=== PATIENT | male | born 1970 | race African-American/Black ===

== ENCOUNTER 2016-09-10 12:12 | Emergency (ER) | payer MEDICAID ==
[~2016-09-10] VITALS: Ht 195.6 cm; Wt 113.9 kg
[~2016-09-10 12:12] MED LIST: ALPR2TAB7 PO; ARIP15TA2 PO; DEXT5TAB15 PO; FLUO40CA8 PO; LEVE500T9 PO
--- NOTE | 2016-09-10 12:24 | NUR ---
Pt ambulatory to bed 2b, dr mattson at bedside for exam.
[2016-09-10] MEDS ORDERED: ACETAMINOPHEN ES 500 MG TABLET PO ONE (12:30)
[2016-09-10] MEDS ORDERED: IBUPROFEN 600 MG TABLET PO ONE (12:30)
--- NOTE | 2016-09-10 12:34 | NUR ---
Pt dc,ed home w/ aci.
[2016-09-10 12:35] VITALS: BP 128/72
[2016-09-10] MEDS ORDERED: ACETAMINOPHEN ES 500 MG TABLET ONE (12:39)
[2016-09-10] MEDS ORDERED: IBUPROFEN 600 MG TABLET ONE (12:39)
== END 2016-09-10 12:35 | disposition home or self-care (01) ==
LOC: ER 12:12
DX: M54.5 Low back pain (principal); G89.29 Other chronic pain; J45.909 Unspecified asthma, uncomplicated; F10.20 Alcohol dependence, uncomplicated; F17.210 Nicotine dependence, cigarettes, uncomplicated; Z88.8 Allergy status to other drugs, medicaments and biological substances; Z88.0 Allergy status to penicillin; Z59.0 Homelessness
CPT/HCPCS: A4663

== ENCOUNTER 2016-09-12 06:36 | Emergency (ER) | payer MEDICAID ==
[~2016-09-12] VITALS: Ht 195.6 cm; Wt 113.9 kg
[~2016-09-12 06:36] MED LIST changes: -DEXT5TAB15 PO
--- NOTE | 2016-09-12 06:37 | NUR ---
PT WALKED INTO ER C/O BURNING UPON URINATION X2 DAY AND COUGH... PT IS ALERT, ORIENTED X 4, NO RESP DISTRESS NOTED OR REPORTED UPON ASSESSMENT... MD AT BEDSIDE...
[2016-09-12 07:02] LABS: *BILIRUBIN,URIN NEGATIVE (NEGATIVE); *BLOOD, URINE NEGATIVE (NEGATIVE); *CLARITY,URINE CLEAR (CLEAR); *COLOR,URINE YELLOW (YELLOW); *KETONES,URINE NEGATIVE (NEGATIVE); *PROTEIN,URINE NEGATIVE (NEGATIVE); *UROBILINOGEN,URINE 0.2 E.U./dl (NORMAL); LEUKOCYTE ESTERASE ,URINE NEGATIVE (NEGATIVE); NITRITE, URINE NEGATIVE (NEGATIVE); PH,URINE 5.5 (5.0-8.0); UGLUCOSE NEGATIVE (NEGATIVE)
[2016-09-12 07:15] LABS: BACTERIA,URINE NONE SEEN /HPF (NONE SEEN); RBC,URINE NONE SEEN /HPF (0-3); SQUAMOUS EPITHELIAL CELL,UR NONE SEEN /HPF (NONE SEEN); WBC,URINE NONE SEEN /HPF (0-3)
[2016-09-12 07:21] VITALS: BP 136/89
--- NOTE | 2016-09-12 07:21 | NUR ---
Patient discharged to home in stable conditon. Written and verbal after care instructions given. Patient verbalizes understanding of instructions. Pt walked out of ER unassisted with belongings at side..
== END 2016-09-12 07:22 | disposition home or self-care (01) ==
LOC: ER 06:37
DX: R05 Cough (principal); F25.9 Schizoaffective disorder, unspecified; R30.0 Dysuria; J45.909 Unspecified asthma, uncomplicated; F10.20 Alcohol dependence, uncomplicated; F17.210 Nicotine dependence, cigarettes, uncomplicated; F31.9 Bipolar disorder, unspecified; Z88.8 Allergy status to other drugs, medicaments and biological substances; Z59.0 Homelessness; Z88.0 Allergy status to penicillin
CPT/HCPCS: 81001; 99283; A4663

== ENCOUNTER 2016-10-29 06:08 | Emergency (ER) | payer MEDICAID ==
[~2016-10-29] VITALS: Ht 195.6 cm; Wt 117.9 kg
--- NOTE | 2016-10-29 07:03 | NUR ---
dr hoff at the bedside for eval and exam.
[2016-10-29] MEDS ORDERED: VANCOMYCIN IV 1,000 MG in IV DEXTROSE 5% 250 ML IV ONE (07:15)
[2016-10-29] MEDS ORDERED: VANCOMYCIN IV 200 ML ONE (07:41)
[2016-10-29 07:45] LABS: BASOPHILS % (AUTO) 0.8 % (0.0-2.0); EOSINOPHILS # (AUTO) 0.3 K/uL (0.0-0.7); EOSINOPHILS % (AUTO) 4.3 % (0.0-7.0); HEMATOCRIT 44.5 % (40-50); HEMOGLOBIN 15.3 G/DL (14.0-18.0); LYMPHOCYTES # (AUTO) 1.8 K/UL (0.8-4.8); LYMPHOCYTES % (AUTO) 29.6 % (20.5-51.5); MEAN CORPUSCULAR HEMOGLOBIN 32.8 UUG (27.0-31.0); MEAN CORPUSCULAR HGB CONC 35 g/dL (32.0-37.0); MEAN CORPUSCULAR VOLUME 95.1 FL (82.0-92.0); MONOCYTES # (AUTO) 0.5 K/UL (0.1-1.30); MONOCYTES % (AUTO) 8.5 % (0.0-11.0); NEUTROPHILS # (AUTO) 3.5 K/UL (1.8-8.9); NEUTROPHILS % (AUTO) 56.8 % (38.5-71.5); PLATELET COUNT (AUTO) 164 K/UL (150-450); RED BLOOD CELL COUNT(AUTO) 4.68 MIL/UL (4.7-6.1); RED CELL DISTRIBUTION WIDTH 12.7 % (11.5-14.5); WHITE BLOOD COUNT (AUTO) 6.1 K/UL (4.0-11.2)
[2016-10-29 07:52] LABS: CARBON DIOXIDE 31 mmol/L (21-32); CHLORIDE 102 mmol/L (98-107); CREATININE 1.2 mg/dL (0.6-1.3); GFR 80 mL/min (>60); GLUCOSE 74 mg/dL (74-106); POTASSIUM 3.5 mmol/L (3.5-5.1); SODIUM SERUM 141 mmol/L (136-145); UREA NITROGEN, BLOOD 13 mg/dL (7-18)
[2016-10-29 08:04] LABS: ALANINE AMINOTRANSFERASE 32 U/L (16-63); ALBUMIN 3.8 g/dL (3.4-5.0); ALKALINE PHOSPHATASE 60 U/L (50-136); ASPARTATE AMINOTRANSFERASE 32 U/L (15-37); BILIRUBIN,DIRECT < 0.1 mg/dL (0.0-0.2); BILIRUBIN,TOTAL 0.3 mg/dL (0.2-1.0); NT-PRO BNP 15 pg/mL (0-125); TOTAL PROTEIN, SERUM 8.1 g/dL (6.4-8.2)
--- NOTE | 2016-10-29 08:26 | NUR ---
belonging list completed, pt not candidate for mrsa.
--- NOTE | 2016-10-29 08:53 | NUR ---
AZ WEINER SPOKE TO AT [facility].
--- NOTE | 2016-10-29 09:10 | NUR ---
SBAR REPORT GIVEN TO TALIA AT [facility]. [facility] CALLED FOR TRANSPORT.
--- NOTE | 2016-10-29 09:15 | NUR ---
PT AND SIGNED TRANSFER PAPERS.
--- NOTE | 2016-10-29 10:26 | NUR ---
REPORT GIVEN TO EMT'S. ALL BELONGING SENT W/ PT. PT LEFT ER IN STABLE CONDITION.
== END 2016-10-29 10:31 | disposition short-term general hospital (02) ==
LOC: ER 06:11
DX: L03.116 Cellulitis of left lower limb (principal); L03.115 Cellulitis of right lower limb; J45.909 Unspecified asthma, uncomplicated; F25.9 Schizoaffective disorder, unspecified; F31.9 Bipolar disorder, unspecified; F10.20 Alcohol dependence, uncomplicated; F17.210 Nicotine dependence, cigarettes, uncomplicated; Z88.0 Allergy status to penicillin; Z88.8 Allergy status to other drugs, medicaments and biological substances
CPT/HCPCS: 36415; 85025; A4663; J3370

== ENCOUNTER 2016-11-03 07:04 | Emergency (ER) | payer MEDICAID ==
[~2016-11-03] VITALS: Ht 195.6 cm; Wt 122.5 kg
--- NOTE | 2016-11-03 10:21 | NUR ---
Patient discharged to home in stable conditon. Written and verbal after care instructions given. Patient verbalizes understanding of instructions.PT WALKS IN STEADY GAIT. [facility] PROVIDED PER PT REQUEST.
[2016-11-03 10:22] VITALS: BP 119/81
== END 2016-11-03 10:30 | disposition home or self-care (01) ==
LOC: ER 07:14
DX: L03.115 Cellulitis of right lower limb (principal); F20.9 Schizophrenia, unspecified; J45.909 Unspecified asthma, uncomplicated; F31.9 Bipolar disorder, unspecified; F10.20 Alcohol dependence, uncomplicated; F17.210 Nicotine dependence, cigarettes, uncomplicated; Z88.0 Allergy status to penicillin; Z88.8 Allergy status to other drugs, medicaments and biological substances; Z59.0 Homelessness
CPT/HCPCS: 93971; 99284; A4663

== ENCOUNTER 2016-11-17 06:44 | Emergency (ER) | payer MEDICAID ==
[~2016-11-17] VITALS: Ht 195.6 cm; Wt 122.5 kg
--- NOTE | 2016-11-17 07:18 | NUR ---
mse completed, pt d/c'd aci/rx x1 given. pt ambulaterd w/o diff/took all belongs
[2016-11-17 07:24] VITALS: BP 129/86
== END 2016-11-17 07:24 | disposition home or self-care (01) ==
LOC: ER 06:47
DX: Z76.0 Encounter for issue of repeat prescription (principal); J45.909 Unspecified asthma, uncomplicated; F10.20 Alcohol dependence, uncomplicated; F17.210 Nicotine dependence, cigarettes, uncomplicated; F31.9 Bipolar disorder, unspecified; Z88.0 Allergy status to penicillin; Z59.0 Homelessness; Z88.8 Allergy status to other drugs, medicaments and biological substances
CPT/HCPCS: 99283; A4663

== ENCOUNTER 2016-11-24 06:56 | Emergency (ER) | payer MEDICAID ==
[~2016-11-24] VITALS: Ht 193 cm; Wt 123.4 kg
--- NOTE | 2016-11-24 07:13 | NUR ---
dr mattson at the bedside for eval and exam.
[2016-11-24] MEDS ORDERED: HYDROCODONE/APAP 5-325MG TABLET PO ONE (07:30)
[2016-11-24] MEDS ORDERED: HYDROCODONE/APAP 5-325MG TABLET ONE (07:38)
--- NOTE | 2016-11-24 07:44 | NUR ---
Patient discharged to home in stable conditon. Written and verbal after care instructions given. Patient verbalizes understanding of instructions.
[2016-11-24 07:45] VITALS: BP 127/75
== END 2016-11-24 07:45 | disposition home or self-care (01) ==
LOC: ER 06:57
DX: S39.012A Strain of muscle, fascia and tendon of lower back, initial encounter (principal); F10.20 Alcohol dependence, uncomplicated; F17.210 Nicotine dependence, cigarettes, uncomplicated; F25.9 Schizoaffective disorder, unspecified; F31.9 Bipolar disorder, unspecified; J45.909 Unspecified asthma, uncomplicated; Z88.0 Allergy status to penicillin; Z59.0 Homelessness; Z88.8 Allergy status to other drugs, medicaments and biological substances; X58.XXXA Exposure to other specified factors, initial encounter; Y93.89 Activity, other specified; Y99.8 Other external cause status; Y92.89 Other specified places as the place of occurrence of the external cause
CPT/HCPCS: 72100; A4663

== ENCOUNTER 2016-12-18 07:25 | Emergency (ER) | payer MEDICAID ==
[~2016-12-18] VITALS: Ht 193 cm; Wt 123.3 kg
[~2016-12-18 07:25] MED LIST changes: -ARIP15TA2 PO; +ARIP15TA3 PO
[2016-12-18] MEDS: CLINDAMYCIN HCL 150 MG CAPSULE PO ONE (08:00)
[2016-12-18] MEDS: HYDROCODONE/APAP 7.5-325MG TABLET PO PRN (08:00)
--- NOTE | 2016-12-18 08:01 | NUR ---
Patient discharged to home in stable conditon. Written and verbal after care instructions given. Patient verbalizes understanding of instructions.
[2016-12-18] MEDS ORDERED: CLINDAMYCIN HCL 300 MG CAPSULE ONE (08:11)
[2016-12-18] MEDS ORDERED: HYDROCODONE/APAP 7.5-325MG TABLET ONE (08:11)
== END 2016-12-18 08:06 | disposition home or self-care (01) ==
LOC: ER 07:26
DX: K02.9 Dental caries, unspecified (principal); S02.5XXG Fracture of tooth (traumatic), subsequent encounter for fracture with delayed healing; J45.909 Unspecified asthma, uncomplicated; F31.9 Bipolar disorder, unspecified; F20.9 Schizophrenia, unspecified; F10.20 Alcohol dependence, uncomplicated; F17.210 Nicotine dependence, cigarettes, uncomplicated; Z88.0 Allergy status to penicillin; Z88.8 Allergy status to other drugs, medicaments and biological substances; Z59.0 Homelessness; X58.XXXD Exposure to other specified factors, subsequent encounter
CPT/HCPCS: A4663

== ENCOUNTER 2017-01-11 22:55 | Emergency (ER) | payer MEDICAID ==
[~2017-01-11] VITALS: Ht 193 cm; Wt 123.4 kg
[2017-01-11] MEDS ORDERED: ARIPIPRAZOLE 5 MG TABLET PO ONE (23:15)
--- NOTE | 2017-01-11 23:30 | NUR ---
Call placed to [facility] for PET evaluation, ETA 60 min.
[2017-01-11] MEDS ORDERED: ARIPIPRAZOLE 5 MG TABLET ONE (23:38)
[2017-01-11 23:51] LABS: EOSINOPHILS # (AUTO) 0.3 K/uL (0.0-0.7); EOSINOPHILS % (AUTO) 6.4 % (0.0-7.0); HEMATOCRIT 42.5 % (40-50); HEMOGLOBIN 14.1 G/DL (14.0-18.0); LYMPHOCYTES # (AUTO) 1.6 K/UL (0.8-4.8); LYMPHOCYTES % (AUTO) 33.9 % (20.5-51.5); MEAN CORPUSCULAR HEMOGLOBIN 31.9 UUG (27.0-31.0); MEAN CORPUSCULAR HGB CONC 33 g/dL (32.0-37.0); MONOCYTES # (AUTO) 0.5 K/UL (0.1-1.30); MONOCYTES % (AUTO) 9.3 % (0.0-11.0); NEUTROPHILS # (AUTO) 2.5 K/UL (1.8-8.9); NEUTROPHILS % (AUTO) 49.4 % (38.5-71.5); PLATELET COUNT (AUTO) 134 K/UL (150-450); RED BLOOD CELL COUNT(AUTO) 4.43 MIL/UL (4.7-6.1); WHITE BLOOD COUNT (AUTO) 4.9 K/UL (4.0-11.2)
[2017-01-12 00:02] LABS: CARBON DIOXIDE 24 mmol/L (21-32); CHLORIDE 104 mmol/L (98-107); CREATININE 1.2 mg/dL (0.6-1.3); GLUCOSE 105 mg/dL (74-106); POTASSIUM 3.5 mmol/L (3.5-5.1); UREA NITROGEN, BLOOD 12 mg/dL (7-18)
[2017-01-12 00:03] LABS: ETHANOL 26 MG/DL (0-0)
[2017-01-12 00:08] LABS: ALANINE AMINOTRANSFERASE 23 U/L (16-63); ALKALINE PHOSPHATASE 68 U/L (50-136); ASPARTATE AMINOTRANSFERASE 21 U/L (15-37); BILIRUBIN,TOTAL 0.2 mg/dL (0.2-1.0); TOTAL PROTEIN, SERUM 7.3 g/dL (6.4-8.2)
[2017-01-12 00:10] LABS: BILIRUBIN,DIRECT 0.1 mg/dL (0.0-0.2)
[2017-01-12 00:30] LABS: ACETAMINOPHEN < 2.0 ug/mL (10-30)
[2017-01-12 00:57] LABS: *AMPHETAMINE, URINE NEGATIVE (NEGATIVE); *BARBITURATE, URINE NEGATIVE (NEGATIVE); *CANNABINOID, URINE NEGATIVE (NEGATIVE); *COCCAINE, URINE NEGATIVE (NEGATIVE); *OPIATE, URINE NEGATIVE (NEGATIVE); *PHENCYCLIDINE SCREEN,URINE NEGATIVE (NEGATIVE)
--- NOTE | 2017-01-12 01:08 | NUR ---
Patient given written and verbal discharge instructions. Patient verbalizes understanding of instructions. Patient is ambulatory with steady gait. Refuses offer of halfway placement. Patient given list of available shelters in surrounding area.
== END 2017-01-12 01:09 | disposition home or self-care (01) ==
LOC: ER 22:56
DX: F25.9 Schizoaffective disorder, unspecified (principal); F29 Unspecified psychosis not due to a substance or known physiological condition; J45.909 Unspecified asthma, uncomplicated; F31.9 Bipolar disorder, unspecified; F10.20 Alcohol dependence, uncomplicated; F17.210 Nicotine dependence, cigarettes, uncomplicated; Z76.5 Malingerer [conscious simulation]; Z88.0 Allergy status to penicillin; Z88.8 Allergy status to other drugs, medicaments and biological substances; Z59.0 Homelessness
CPT/HCPCS: 36415; 80048; 80076; 80307; 85025; 99284; 99406; A4663; G0480 ×2; G0481

== ENCOUNTER 2017-01-21 11:11 | Emergency (ER) | payer MEDICAID ==
[~2017-01-21] VITALS: Ht 195.6 cm; Wt 122.4 kg
--- NOTE | 2017-01-21 11:16 | NUR ---
DR PEREZ AT THE BEDSIDE FOR EVAL AND EXAM.
[2017-01-21] MEDS: KETOROLAC TROMETHAMINE 30 MG INJ IM ONE (11:30)
[2017-01-21] MEDS ORDERED: KETOROLAC TROMETHAMINE 30 MG INJ ONE (11:32)
[2017-01-21 11:35] VITALS: BP 144/85
--- NOTE | 2017-01-21 11:35 | NUR ---
Patient discharged to home in stable conditon. Written and verbal after care instructions given. Patient verbalizes understanding of instructions.
== END 2017-01-21 11:36 | disposition home or self-care (01) ==
LOC: ER 11:11
DX: M54.5 Low back pain (principal); Z59.0 Homelessness; F17.200 Nicotine dependence, unspecified, uncomplicated; J45.909 Unspecified asthma, uncomplicated; Z88.0 Allergy status to penicillin
CPT/HCPCS: A4663; J1885

== ENCOUNTER 2017-01-29 06:36 | Emergency (ER) | payer MEDICAID ==
[~2017-01-29] VITALS: Ht 195.6 cm; Wt 123.4 kg
[2017-01-29] MEDS ORDERED: CLIN300C11 PO (06:47)
--- NOTE | 2017-01-29 06:51 | NUR ---
PATIENT C/O TOOTH ABSCESS FOR SEVERAL DAYS. WAS SEEN ON ANOTHER HOSPITAL FOR SIMILAR PROBLEM AND WAS PRESCRIBE CINDAMYCIN 300MG BID. HERE FOR WORSENING PAIN. PATIENT DENIES ANY SHORTNESS OF BREATH AT THIS TIME.
--- NOTE | 2017-01-29 07:07 | NUR ---
DR GERMAN AT THE BEDSIDE FOR EVAL AND EXAM.
[2017-01-29 07:26] VITALS: BP 113/73
--- NOTE | 2017-01-29 07:26 | NUR ---
Patient discharged to home in stable conditon. Written and verbal after care instructions given. Patient verbalizes understanding of instructions.
== END 2017-01-29 07:27 | disposition home or self-care (01) ==
LOC: ER 06:37
DX: K04.7 Periapical abscess without sinus (principal); Z59.0 Homelessness; F17.200 Nicotine dependence, unspecified, uncomplicated; J45.909 Unspecified asthma, uncomplicated; Z88.0 Allergy status to penicillin
CPT/HCPCS: A4663

== ENCOUNTER 2017-04-15 05:33 | Emergency (ER) | payer MEDICAID ==
[~2017-04-15] VITALS: Ht 195.6 cm; Wt 129.3 kg
[~2017-04-15 05:33] MED LIST changes: +CLIN300C11 PO
[2017-04-15] MEDS ORDERED: ACETAMINOPHEN 650 MG/20.3 ML LIQUID UDC PO ONE (06:53)
[2017-04-15] MEDS ORDERED: ONDANSETRON ODT 4 MG TAB.RAPDIS SL ONE (07:00)
[2017-04-15] MEDS ORDERED: ACETAMINOPHEN ES 500 MG TABLET ONE (07:11)
[2017-04-15] MEDS ORDERED: ONDANSETRON ODT 4 MG TAB.RAPDIS ONE (07:11)
[2017-04-15] MEDS ORDERED: IBUPROFEN 800 MG TABLET PO ONE (08:05)
[2017-04-15] MEDS ORDERED: IBUPROFEN 800 MG TABLET ONE (08:23)
--- NOTE | 2017-04-15 08:56 | NUR ---
pt was evaluated by dr graham. pt was d/c to home. d/c instructions given to the pt.
[2017-04-15 08:57] VITALS: BP 139/91
== END 2017-04-15 08:59 | disposition home or self-care (01) ==
LOC: ER 05:40
DX: R51 Headache (principal); R42 Dizziness and giddiness; R07.9 Chest pain, unspecified; R19.7 Diarrhea, unspecified; Z88.0 Allergy status to penicillin; Z59.0 Homelessness; J45.909 Unspecified asthma, uncomplicated
CPT/HCPCS: 70450; 99284; A4663; Q0162

== ENCOUNTER 2017-05-05 08:41 | Emergency (ER) | payer MEDICAID ==
[~2017-05-05] VITALS: Ht 195.6 cm; Wt 129.3 kg
[2017-05-05] MEDS ORDERED: IV NORMAL SALINE 1000 ML BAG IV ONE (09:00)
--- NOTE | 2017-05-05 09:10 | NUR ---
DR GERMAN AT THE BEDSIDE FOR EVAL AND EXAM.
[2017-05-05 09:29] LABS: BASOPHILS % (AUTO) 0.7 % (0.0-2.0); EOSINOPHILS # (AUTO) 0.3 K/uL (0.0-0.7); EOSINOPHILS % (AUTO) 4.7 % (0.0-7.0); HEMATOCRIT 48.1 % (40-50); HEMOGLOBIN 16.5 G/DL (14.0-18.0); LYMPHOCYTES # (AUTO) 1.9 K/UL (0.8-4.8); LYMPHOCYTES % (AUTO) 31.5 % (20.5-51.5); MEAN CORPUSCULAR HEMOGLOBIN 32.7 UUG (27.0-31.0); MEAN CORPUSCULAR HGB CONC 34 g/dL (32.0-37.0); MEAN CORPUSCULAR VOLUME 95.2 FL (82.0-92.0); MONOCYTES # (AUTO) 0.7 K/UL (0.1-1.30); MONOCYTES % (AUTO) 11.1 % (0.0-11.0); NEUTROPHILS # (AUTO) 3.1 K/UL (1.8-8.9); PLATELET COUNT (AUTO) 128 K/UL (150-450); RED BLOOD CELL COUNT(AUTO) 5.05 MIL/UL (4.7-6.1)
[2017-05-05 09:37] LABS: CREATININE 1.2 mg/dL (0.6-1.3); POTASSIUM 4.2 mmol/L (3.5-5.1)
[2017-05-05 09:43] LABS: BILIRUBIN,DIRECT 0.1 mg/dL (0.0-0.2); BILIRUBIN,TOTAL 0.3 mg/dL (0.2-1.0); TOTAL PROTEIN, SERUM 8.1 g/dL (6.4-8.2)
--- NOTE | 2017-05-05 10:11 | NUR ---
[facility] CALLED FOR PSYCH EVAL PER MD REQUEST.
--- NOTE | 2017-05-05 10:30 | NUR ---
[facility] PET elavuater called ETA 30 min. pt is resting in bed, watching TV. no acute distress.
--- NOTE | 2017-05-05 11:11 | NUR ---
RENETTA RODRIGUES FROM PET AT THE BEDSIDE FOR PSYCH EVAL.
--- NOTE | 2017-05-05 11:42 | NUR ---
IV removed. Catheter intact and site benign. Pressure and 4x4 gauze applied to site. No bleeding noted.
--- NOTE | 2017-05-05 11:44 | NUR ---
Patient discharged to home in stable conditon. Written and verbal after care instructions given. Patient verbalizes understanding of instructions.
[2017-05-05 11:45] VITALS: BP 123/68
== END 2017-05-05 11:46 | disposition home or self-care (01) ==
LOC: ER 08:41
DX: R42 Dizziness and giddiness (principal); J45.909 Unspecified asthma, uncomplicated; Z59.0 Homelessness; F17.200 Nicotine dependence, unspecified, uncomplicated; Z88.0 Allergy status to penicillin; Z88.8 Allergy status to other drugs, medicaments and biological substances
CPT/HCPCS: 36415; 71010; 80048; 80076; 84484; 85025; 93005; 96360; 99285; A4663; J7030; 70030-TC

== ENCOUNTER 2017-06-23 08:01 | Emergency (ER) | payer MEDICAID ==
[~2017-06-23] VITALS: Ht 188 cm; Wt 104.3 kg
[2017-06-23] MEDS ORDERED: KETOROLAC TROMETHAMINE 30 MG INJ IM ONE (08:30)
[2017-06-23] MEDS ORDERED: IBUPROFEN 800 MG TABLET PO ONE (08:30)
[2017-06-23 08:40] VITALS: BP 119/86
--- NOTE | 2017-06-23 08:41 | NUR ---
Patient discharged to home in stable conditon. Written and verbal after care instructions given. Patient verbalizes understanding of instructions. Pt walked out of ER w/ steady gait.
[2017-06-23] MEDS ORDERED: IBUPROFEN 800 MG TABLET ONE (08:51)
== END 2017-06-23 08:41 | disposition home or self-care (01) ==
LOC: ER 08:01
DX: M54.16 Radiculopathy, lumbar region (principal); J45.909 Unspecified asthma, uncomplicated; Z59.0 Homelessness; Z88.0 Allergy status to penicillin; F17.200 Nicotine dependence, unspecified, uncomplicated
CPT/HCPCS: A4663

== ENCOUNTER 2017-06-27 09:40 | Emergency (ER) | payer MEDICAID ==
[~2017-06-27] VITALS: Ht 195.6 cm; Wt 129.3 kg
[2017-06-27] MEDS ORDERED: ALBU8HFA4 IH (09:49)
[2017-06-27] MEDS ORDERED: IBUP800T54 PO (09:49)
--- NOTE | 2017-06-27 10:01 | NUR ---
Patient is aox4 & refusing any blood or urine tests. MD notified. Patient denies homicidal or suicidal thoughts
--- NOTE | 2017-06-27 10:15 | NUR ---
Patient discharged to home in stable conditon. Written and verbal after care instructions given to patient by MD himself. Patient verbalizes understanding of instructions.
== END 2017-06-27 10:15 | disposition home or self-care (01) ==
LOC: ER 09:40
DX: F20.9 Schizophrenia, unspecified (principal); Z59.0 Homelessness; F31.9 Bipolar disorder, unspecified; F17.200 Nicotine dependence, unspecified, uncomplicated; G40.909 Epilepsy, unspecified, not intractable, without status epilepticus; J45.909 Unspecified asthma, uncomplicated; D86.9 Sarcoidosis, unspecified; Z88.0 Allergy status to penicillin
CPT/HCPCS: A4663

== ENCOUNTER 2017-07-08 08:45 | Emergency (ER) | payer MEDICAID ==
[~2017-07-08] VITALS: Ht 190.5 cm; Wt 113.4 kg
[~2017-07-08 08:45] MED LIST changes: +ALBU8HFA4 IH; -CLIN300C11 PO; +IBUP800T54 PO
--- NOTE | 2017-07-08 09:02 | NUR ---
PT IN BED WATCHING TV. PT STATES NOT HAVING SLEPT IN 7 DAYS AND "STARTING TO FEEL FATIGUE." PT STATES BEING HERE FOR MED REFILL AND DENIES BEING IN PAIN OR ANY TYPE OF PHYSICAL DISTRESS. CURRENTLY WAITING FOR MD CONSULT. WILL CONTINUE TO MONITOR.
== END 2017-07-08 09:22 | disposition home or self-care (01) ==
LOC: ER 08:45
DX: F20.9 Schizophrenia, unspecified (principal); Z59.0 Homelessness; F17.200 Nicotine dependence, unspecified, uncomplicated; J45.909 Unspecified asthma, uncomplicated; Z88.0 Allergy status to penicillin; Z88.8 Allergy status to other drugs, medicaments and biological substances; F31.9 Bipolar disorder, unspecified
CPT/HCPCS: A4663

== ENCOUNTER 2017-08-01 07:59 | Emergency (ER) | payer MEDICAID ==
[~2017-08-01] VITALS: Ht 195.6 cm; Wt 129.3 kg
--- NOTE | 2017-08-01 08:25 | NUR ---
Patient discharged to home in stable conditon. Written and verbal after care instructions given. Patient verbalizes understanding of instructions.pt walks in steady gait, no sign of distress.
== END 2017-08-01 08:28 | disposition home or self-care (01) ==
LOC: ER 08:01
DX: Z76.0 Encounter for issue of repeat prescription (principal); Z59.0 Homelessness; J45.909 Unspecified asthma, uncomplicated; Z88.0 Allergy status to penicillin; F17.200 Nicotine dependence, unspecified, uncomplicated
CPT/HCPCS: 99283; A4663

== ENCOUNTER 2017-08-16 10:47 | Emergency (ER) | payer MEDICAID ==
[~2017-08-16] VITALS: Ht 193 cm; Wt 113.4 kg
[~2017-08-16 10:47] MED LIST changes: -IBUP800T54 PO
--- NOTE | 2017-08-16 12:50 | NUR ---
PATIENT WAS MSE BY DR GERMAN
--- NOTE | 2017-08-16 13:13 | NUR ---
DR hoff spoke with patient. Patient discharged to home in stable conditon. Verbal after care instructions given. Patient verbalizes understanding of instructions. Patient NO CP. Dose not verbalize any SI. A & O x4.
== END 2017-08-16 13:17 | disposition home or self-care (01) ==
LOC: ER 10:47
DX: F29 Unspecified psychosis not due to a substance or known physiological condition (principal); J45.909 Unspecified asthma, uncomplicated; F20.9 Schizophrenia, unspecified; F17.210 Nicotine dependence, cigarettes, uncomplicated; Z59.0 Homelessness; Z88.0 Allergy status to penicillin; Z88.8 Allergy status to other drugs, medicaments and biological substances; Z79.899 Other long term (current) drug therapy
CPT/HCPCS: 99284; A4663

== ENCOUNTER 2017-08-28 15:47 | Emergency (ER) | payer MEDICAID ==
[~2017-08-28] VITALS: Ht 195.6 cm; Wt 129.3 kg
== END 2017-08-28 16:36 | disposition home or self-care (01) ==
LOC: ER 15:50
DX: J45.909 Unspecified asthma, uncomplicated (principal); F17.210 Nicotine dependence, cigarettes, uncomplicated; Z76.0 Encounter for issue of repeat prescription; Z59.0 Homelessness; Z88.0 Allergy status to penicillin; Z88.8 Allergy status to other drugs, medicaments and biological substances; Z79.899 Other long term (current) drug therapy
CPT/HCPCS: A4663

== ENCOUNTER 2017-09-09 07:47 | Emergency (ER) | payer MEDICAID ==
[~2017-09-09] VITALS: Ht 195.6 cm; Wt 129.3 kg
--- NOTE | 2017-09-09 08:02 | NUR ---
PATIENT WAS SEEN BY DR ROSE FOR C/O "PRIAPISM" DC AND FOLLOW UP INSTRUCTIONS GIVEN TO PATIENT BY .
== END 2017-09-09 08:04 | disposition home or self-care (01) ==
LOC: ER 07:47
DX: N48.30 Priapism, unspecified (principal); J45.909 Unspecified asthma, uncomplicated; F17.210 Nicotine dependence, cigarettes, uncomplicated; Z88.0 Allergy status to penicillin; Z88.8 Allergy status to other drugs, medicaments and biological substances; Z79.899 Other long term (current) drug therapy
CPT/HCPCS: A4663

== ENCOUNTER 2017-09-18 10:46 | Emergency (ER) | payer MEDICAID ==
[~2017-09-18] VITALS: Ht 195.6 cm; Wt 83.9 kg
--- NOTE | 2017-09-18 11:08 | NUR ---
Patient discharged to home in stable conditon. Written and verbal after care instructions given. Patient verbalizes understanding of instructions.pt walks in steady gait, no sign of distress
== END 2017-09-18 11:09 | disposition home or self-care (01) ==
LOC: ER 10:46
DX: Z76.0 Encounter for issue of repeat prescription (principal); J45.909 Unspecified asthma, uncomplicated; F17.210 Nicotine dependence, cigarettes, uncomplicated; Z88.0 Allergy status to penicillin; Z88.8 Allergy status to other drugs, medicaments and biological substances; Z79.899 Other long term (current) drug therapy
CPT/HCPCS: A4663

== ENCOUNTER 2017-09-25 05:32 | Emergency (ER) | payer MEDICAID ==
[~2017-09-25] VITALS: Ht 195.6 cm; Wt 129.3 kg
--- NOTE | 2017-09-25 05:54 | NUR ---
DR MONSERRAT BERNARDO MD AT BEDSIDE FOR MSE.
--- NOTE | 2017-09-25 06:02 | NUR ---
PT STATES HE IS HEARING VOICES, TELLING HIM TO HURT OTHERS. PT PRESENTS CALM AND COOPERATIVE AT THIS POINT IN TIME. HE ALSO STATES HE HAS BILATERAL PAIN IN BOTH THIGHS, THINKING THAT ARE "BLOOD CLOTS"
--- NOTE | 2017-09-25 06:11 | NUR ---
LAB AT BEDSIDE FOR BLOOD DRAW.
[2017-09-25 06:18] LABS: BASOPHILS # (AUTO) 0.1 K/uL (0.0-8.0); BASOPHILS % (AUTO) 0.7 % (0.0-2.0); EOSINOPHILS # (AUTO) 0.3 K/uL (0.0-0.7); EOSINOPHILS % (AUTO) 3.9 % (0.0-7.0); HEMATOCRIT 45.9 % (36.7-47.1); HEMOGLOBIN 15.8 g/dL (12.5-16.3); LYMPHOCYTES # (AUTO) 2.6 K/uL (20.0-40.0); LYMPHOCYTES % (AUTO) 29.6 % (20.5-51.5); MEAN CORPUSCULAR HEMOGLOBIN 32.8 uug (23.8-33.4); MEAN CORPUSCULAR HGB CONC 34 g/dL (32.5-36.3); MEAN CORPUSCULAR VOLUME 95.4 fL (73.0-96.2); MONOCYTES # (AUTO) 0.8 K/uL (2.0-10.0); NEUTROPHILS # (AUTO) 4.9 K/uL (1.8-8.9); NEUTROPHILS % (AUTO) 56.8 % (38.5-71.5); PLATELET COUNT (AUTO) 129 K/uL (152-348); RED BLOOD CELL COUNT(AUTO) 4.82 MIL/uL (4.06-5.63); WHITE BLOOD COUNT (AUTO) 8.7 K/uL (3.6-10.2)
[2017-09-25 06:33] LABS: ALANINE AMINOTRANSFERASE 25 U/L (16-63); ALKALINE PHOSPHATASE 87 U/L (50-136); ASPARTATE AMINOTRANSFERASE 19 U/L (15-37); BILIRUBIN,DIRECT 0.1 mg/dL (0.0-0.2); BILIRUBIN,TOTAL 0.4 mg/dL (0.2-1.0); CARBON DIOXIDE 29 mmol/L (21-32); CHLORIDE 103 mmol/L (98-107); CREATININE 1.4 mg/dL (0.6-1.3); GLUCOSE 94 mg/dL (74-106); POTASSIUM 3.7 mmol/L (3.5-5.1); UREA NITROGEN, BLOOD 13 mg/dL (7-18)
[2017-09-25 06:53] LABS: ETHANOL < 3 MG/DL (0-0)
--- NOTE | 2017-09-25 07:15 | NUR ---
REPORT GIVEN TO JOSE RAFAEL PHAM.
--- NOTE | 2017-09-25 07:30 | NUR ---
PATIENT IS AWAKE AND ALERT. DR LEENA IN THE ROOM SPEAKING TO HIM.
[2017-09-25 08:00] LABS: *AMPHETAMINE, URINE NEGATIVE (NEGATIVE); *BARBITURATE, URINE NEGATIVE (NEGATIVE); *CANNABINOID, URINE NEGATIVE (NEGATIVE); *COCCAINE, URINE NEGATIVE (NEGATIVE); *OPIATE, URINE NEGATIVE (NEGATIVE); *PHENCYCLIDINE SCREEN,URINE NEGATIVE (NEGATIVE)
[2017-09-25 08:05] LABS: *CLARITY,URINE CLEAR (CLEAR); *COLOR,URINE YELLOW (YELLOW)
[2017-09-25 08:06] LABS: *BILIRUBIN,URIN NEGATIVE (NEGATIVE); *BLOOD, URINE NEGATIVE (NEGATIVE); *KETONES,URINE NEGATIVE (NEGATIVE); *PROTEIN,URINE NEGATIVE (NEGATIVE); *UROBILINOGEN,URINE 0.2 E.U./dl (NORMAL); BACTERIA,URINE NONE SEEN /HPF (NONE SEEN); LEUKOCYTE ESTERASE ,URINE NEGATIVE (NEGATIVE); NITRITE, URINE NEGATIVE (NEGATIVE); RBC,URINE 0-3 /HPF (0-3); SQUAMOUS EPITHELIAL CELL,UR FEW /HPF (NONE SEEN); UGLUCOSE NEGATIVE (NEGATIVE); WBC,URINE 0-3 /HPF (0-3)
[2017-09-25 08:07] LABS: MUCUS,URINE FEW /LPF (0-FEW); URINE AMORPHOUS PHOSPHATES FEW /HPF
--- NOTE | 2017-09-25 08:16 | NUR ---
AWAITING ULTRASOUND. PT ATE BREAKFAST.
--- NOTE | 2017-09-25 08:20 | NUR ---
Call placed to [facility], for PET evaluation, ETA 60 min.
--- NOTE | 2017-09-25 09:30 | NUR ---
[facility] LCS[facility], at pt bedside for PET evaluation.
--- NOTE | 2017-09-25 10:20 | NUR ---
Patient given written and verbal discharge instructions. Patient verbalizes understanding of instructions. Patient is ambulatory with steady gait. Refuses offer of longterm placement. Patient given list of available shelters in surrounding area.
== END 2017-09-25 10:22 | disposition home or self-care (01) ==
LOC: ER 05:33
DX: R45.850 Homicidal ideations (principal); R44.0 Auditory hallucinations; J45.909 Unspecified asthma, uncomplicated; F17.210 Nicotine dependence, cigarettes, uncomplicated; Z88.0 Allergy status to penicillin; Z88.8 Allergy status to other drugs, medicaments and biological substances; Z59.0 Homelessness; Z79.899 Other long term (current) drug therapy
CPT/HCPCS: 36415; 80307; 85025; 85610; A4663; G0480

== ENCOUNTER 2018-04-01 18:03 | Inpatient (IN) | payer MEDICAID, OTHER ==
[~2018-04-01] VITALS: Ht 195.6 cm; Wt 108.9 kg
--- NOTE | 2018-04-01 19:35 | NUR ---
PRE-ADMISSION NOTE Pre-assessment for patient, 48 year old male, done in intake on 04/01/2018 at 1935. Patient is alert and oriented x4: Place, Time, Person, and Situation, with stable gait, soft clear speech, and verbally appropriate, with anxious mood and flat affect. Patient reports allergy to Penicillin, Benztropine, and Haloperidol. Patient reports history of epileptic seizures, with last episode on 03/31/2018. Patient was admitted to [facility] ([place] on 03/31/2018 at 0100 and discharged on 03/31/2018 at 0830. Patient said, "The first time that I drank was in 2007, and last drank "Fireball" 2 pints, Vodka 1500 ml, and Tequila 750 ml on 03/31/2018, and Tequila 750 ml today at 1600". CIWA=16 at 1935. Patient presenting with anxiety, agitation, nervousness, sweating, tremors, mild headache, restlessness, and fatigue. VS: T: 98.1, HR: 86, BP: 123/72, RR: 19, RA O2 Sat: 95%, Headache pain level "5/10". Patient bring home medications: Lidocaine patch. Patient is stable for admission. Patient was educated in admission process, and policy and rules explained to patient. Will to continue admission in the unit. Addendum: 04/02/18 at 0526 by ENDY JAUREGUI RN * "Fireball" Liam
[2018-04-01] MEDS ORDERED: CLONIDINE HCL 0.1 MG TABLET PO PRN (19:45)
[2018-04-01] MEDS ORDERED: ONDANSETRON 4 MG/2 ML VIAL IM PRN (19:45)
[2018-04-01] MEDS ORDERED: THIAMINE HCL 200 MG/2 ML VIAL IM ONE (19:45)
[2018-04-01] MEDS ORDERED: MAG HYDROX/AL HYDROX/SIMETH 30 ML LIQUID UDC PO PRN (19:45)
[2018-04-01] MEDS ORDERED: MIRALAX 17 GM POWD.PACK PO PRN (19:45)
[2018-04-01] MEDS ORDERED: LOPERAMIDE HCL 2 MG CAPSULE PO PRN ×2 (19:45)
[2018-04-01] MEDS ORDERED: MAGNESIUM HYDROXIDE 30 ML LIQUID UDC PO PRN (19:45)
[2018-04-01] MEDS ORDERED: LORAZEPAM 2 MG/1 ML VIAL IM PRN (19:45)
[2018-04-01] MEDS ORDERED: ACETAMINOPHEN 325 MG TABLET PO PRN (19:45)
[2018-04-01] MEDS ORDERED: ONDANSETRON ODT 4 MG TAB.RAPDIS SL PRN (19:45)
[2018-04-01] MEDS ORDERED: HYDROXYZINE PAMOATE 25 MG CAPSULE PO PRN (19:45)
[2018-04-01] MEDS ORDERED: LORAZEPAM 1 MG TABLET PO PRN ×2 (19:45)
--- NOTE | 2018-04-01 19:49 | NUR ---
ADMISSION NOTE The patient is a 48 year old male, admitted to [facility] for Alcohol withdrawal. Patient is alert and oriented x4: Place, Time, Person, and Situation, with stable gait, soft clear speech, and verbally appropriate, with anxious mood and flat affect. Patient reports allergy to Penicillin, Benztropine, and Haloperidol. Past Medical History: Anxiety, Depression, Asthma since childhood, Epilepsy with history of epileptic seizures, with last episode on 03/31/2018. Patient was admitted to [facility] ([place]) on 03/31/2018 at 0100 and discharged on 03/31/2018 at 0830. MRSA done and sent to lab. Urine collected for drug screen test and sent to lab. Substance use history: Patient said, "The first time that I drank was in 2007, and very easy was addicted. Recently I am using alcohol every day a lot: 1"Vodka 750 -1500 ml every day. Last drank 1500 ml on 03/31/2018", 2"Tequila 750 ml every day. Last drank Tequila 750 ml on 03/31/2018", 3"Fireball 1-2 pint every day. Last drank "Fireball" 2 pints on 03/31/2018". Patient reports, "My longest period of sobriety was 9 hours, but I don't remember when it was". Patient describe to me his symptoms when he don't use alcohol, verbalized: "If I have not drank for few hours, I am going to feel anxiety, agitation, nervousness, tremors, dizziness, sickness from abdominal cramps, nausea, vomiting, headache, and body pains. Patient reports, "I am started smoking since 1997: 1 pack during the day". Patient was educated in smoking cessation. Patient said, "I am coming today for first time in Detox treatment because I want to be sober for back to my healthiest life". Patient bring home medications: Lidocaine patch. Reconciliation done. Patient does not have PCP. VS: T: 98.1, HR: 86, BP: 123/72, RR: 19, RA O2 Sat: 95%, Headache pain level "5/10". Respirations are even and unlabored. Patient denies SOB and chest pain. Abdomen is soft and non-tender. Bowel Sounds are active in all four quadrants. Last Bowel Movement was today at AM. Skin check done: Skin is intact, warm, and dry to touch. Patient oriented to unit, policy for VS and CIWA assessment every four hours, and how to used nursing Call light. Patient was encouraged to fluids intake as tolerated, and to attend group activities. Safe and calm environment provided. Dr. Nehemias MD aware, and order placed. All needs met. Safety measures in place: Sheldon light within reach, bed is locked in lowest position, padded rails up x2. Will continue to monitor closely. Addendum: 04/02/18 at 0527 by ENDY JAUREGUI RN * "Fireball" Liam
[2018-04-01 20:00] VITALS: BP 123/72
--- NOTE | 2018-04-01 20:00 | NUR ---
CIWA ASSESSMENT CIWA=16: Patient presenting with moderate withdrawal symptoms such as anxiety, agitation, nervousness, sweating, tremors, mild headache, restlessness, and fatigue. Scheduled and PRN Medications will be administrated, as ordered. Safe and calm environment provided. All needs met. Safety measures in place: Sheldon light within reach, bed is locked in lowest position, padded rails up x2. Will continue to monitor closely.
[2018-04-01 20:16] LABS: ETHANOL < 3 MG/DL (0-0)
[2018-04-01 20:17] LABS: ALANINE AMINOTRANSFERASE 25 U/L (16-63); ALKALINE PHOSPHATASE 88 U/L (50-136); AMYLASE 40 U/L (25-115); ASPARTATE AMINOTRANSFERASE 22 U/L (15-37); BILIRUBIN,TOTAL 0.4 mg/dL (0.2-1.0); CARBON DIOXIDE 29 mmol/L (21-32); CHLORIDE 107 mmol/L (98-107); CREATININE 1.4 mg/dL (0.6-1.3); GLUCOSE 85 mg/dL (74-106); LIPASE 103 U/L (73-393); MAGNESIUM 2.1 mg/dL (1.8-2.4); TOTAL PROTEIN, SERUM 7.4 g/dL (6.4-8.2); UREA NITROGEN, BLOOD 17 mg/dL (7-18)
[2018-04-01 20:18] LABS: BASOPHILS % (AUTO) 0.6 % (0.0-2.0); EOSINOPHILS # (AUTO) 0.3 K/uL (0.0-0.7); EOSINOPHILS % (AUTO) 3.7 % (0.0-7.0); HEMATOCRIT 44.8 % (36.7-47.1); HEMOGLOBIN 15.3 g/dL (12.5-16.3); LYMPHOCYTES # (AUTO) 1.5 K/uL (20.0-40.0); LYMPHOCYTES % (AUTO) 20.1 % (20.5-51.5); MEAN CORPUSCULAR HEMOGLOBIN 33.8 uug (23.8-33.4); MEAN CORPUSCULAR HGB CONC 34 g/dL (32.5-36.3); MEAN CORPUSCULAR VOLUME 98.8 fL (73.0-96.2); MONOCYTES # (AUTO) 0.8 K/uL (2.0-10.0); MONOCYTES % (AUTO) 9.9 % (0.0-11.0); NEUTROPHILS % (AUTO) 65.7 % (38.5-71.5); PLATELET COUNT (AUTO) 138 K/uL (152-348); RED BLOOD CELL COUNT(AUTO) 4.53 MIL/uL (4.06-5.63); WHITE BLOOD COUNT (AUTO) 7.7 K/uL (3.6-10.2)
[2018-04-01 20:29] LABS: *AMPHETAMINE, URINE NEGATIVE (NEGATIVE); *BARBITURATE, URINE NEGATIVE (NEGATIVE); *CANNABINOID, URINE NEGATIVE (NEGATIVE); *COCCAINE, URINE NEGATIVE (NEGATIVE); *OPIATE, URINE NEGATIVE (NEGATIVE); *PHENCYCLIDINE SCREEN,URINE NEGATIVE (NEGATIVE)
[2018-04-01] MEDS: IBUPROFEN 600 MG TABLET PO PRN (21:03)
[2018-04-01] MEDS: diphenhydrAMINE 50 MG CAPSULE PO PRN (21:03)
--- NOTE | 2018-04-01 21:03 | NUR ---
PRN ATIVAN PO, PRN MOTRIN PO, AND PRN BENADRYL PO ADMINISTRATION PRN Ativan 2 mg PO for CIWA=16, PRN Motrin 600 mg PO for headache and low back pain "5/10", and PRN Benadryl 50 mg PO for insomnia administrated at 2103, as ordered. Patient tolerated well. Will reassess in one hour. Safe and calm environment provided. All needs met. Safety measures in place: Sheldon light within reach, bed is locked in lowest position, padded rails up x2. Will continue to monitor closely.
--- NOTE | 2018-04-01 22:03 | NUR ---
RE-ASSESSMENT Patient is sleeping on his side. Respirations are even and unlabored. RR:16. PRN Ativan 2 mg PO for CIWA=16, PRN Motrin 600 mg PO for headache and low back pain "5/10", and PRN Benadryl 50 mg PO for insomnia administrated as ordered at 2102 were effective. Safe and calm environment provided. All needs met. Safety measures in place: Sheldon light within reach, bed is locked in lowest position, padded rails up x2. Will continue to monitor closely.
[2018-04-01] MEDS ORDERED: LIDO700A30 TP (22:30)
[2018-04-02] VITALS: BP 103/60
--- NOTE | 2018-04-02 | NUR ---
CIWA ASSESSMENT CIWA=12: Patient presented with anxiety, agitation, nervousness, mild nausea, sweating, bilateral tremors, restlessness, and fatigue. Patient refused PRN Medications at this time. Safe and calm environment provided. All needs met. Safety measures in place: Sheldon light within reach, bed is locked in lowest position, padded rails up x2. Will continue to monitor closely.
[2018-04-02 04:00] VITALS: BP 97/57
--- NOTE | 2018-04-02 04:00 | NUR ---
CIWA ASSESSMENT CIWA=10: Patient presented with following withdrawal symptoms, such anxiety, agitation, nervousness, sweating, bilateral tremors, restlessness, and fatigue. Safe and calm environment provided. All needs met. Safety measures in place: Sheldon light within reach, bed is locked in lowest position, padded rails up x2. Will continue to monitor closely.
--- NOTE | 2018-04-02 07:12 | NUR ---
END OF SHIFT NOTE Endorsed patient is a 48 year old male, admitted for Alcohol withdrawal on 04/01/2018 at 1949, placed on PRN medications. The patient is alert and oriented x4: Place, Time, Person, and Situation, with stable gait, soft clear speech, and verbally appropriate The patient noted with anxious mood and flat affect. The patient reports allergy to Penicillin, Benztropine, and Haloperidol. Patient reports history of epileptic seizures, with last epileptic seizure episode on 03/31/2018. Patient was admitted to [facility] ([place]) on 03/31/2018 at 0100 and discharged on 03/31/2018 at 0830. MRSA (nares) collected and sent to lab. Initial CIWA=16 at 2000, CIWA=12 at 0000. Last CIWA=10 at 0400. Patient presenting with anxiety, agitation, nervousness, sweating, tremors, mild headache, restlessness, and fatigue. PRN Ativan 2 mg PO administrated for CIWA=16 at 2103, PRN Motrin 600 mg PO administrated for headache"5/10". at 2103, and PRN Benadryl 50 mg PO administrated for insomnia at 2103, and were effective. Encouraged to fluids intake as tolerated. Encouraged to attend group activities. Patient slept for 8 hours, intake 355 ml, output: voided x4. All needs met. Safety measures in place: Sheldon light within reach, bed is locked in lowest position, padded rails up x2. Patient endorsed to day shift nurse.
--- NOTE | 2018-04-02 07:30 | NUR ---
Start of Shift Mold Designer received report on 48 year old male admitted to [facility] on 04/01/18 for medical management of ETOH withdrawals. Pt endorses allergies to PCN, Benztropine, and Haldol. Pt with a PMH of Epilepsy, last seizure 03/31/18, and asthma. Endorses a PPH of anxiety and depression. Pt currently on PRN Ativan, with last CIWA 10, recorded at 0400, per report. Pt administered 2mg Ativan(anxiety), Motrin(pain) and Benadryl(insomnia), per report. Mold Designer encounters pt in pts room, pt is pacing and anxious with complaints of back pain and has fine tremors. Pt is A/O x4 and able to make needs known. Flat affect and depressed mood. Pt with a linear thought and clear speech process. Denies HI/SI or A/VH. Bed in low position with wheels locked and side rails upx2. Will continue to monitor, support and encourage according to plan of care.
[2018-04-02 08:00] VITALS: BP 106/58
--- NOTE | 2018-04-02 08:00 | NUR ---
CIWA 12 Pt is diaphoretic, tremulous, anxious and restless, with complaints of nausea and myalgia. Will continue to monitor, support and encourage according to plan of care.
[2018-04-02] MEDS ORDERED: TUBERCULIN,PURIF.PROT.DERIV. 5 TU/0.1 ML TEST ID ONE (09:00)
[2018-04-02] MEDS ORDERED: DIAZEPAM 10 MG TABLET PO PRN ×2 (09:15)
[2018-04-02] MEDS ORDERED: DIAZEPAM 5 MG TABLET PO PRN (09:15)
[2018-04-02] MEDS ORDERED: 5 DAY TAPER VALIUM-SERENITY PROTOCOL PO PRN (09:15)
[2018-04-02] MEDS: MULTIVITAMINS,THERAPEUTIC TABLET PO SCH (10:00)
[2018-04-02] MEDS: FOLIC ACID 1 MG TABLET PO SCH (10:00)
[2018-04-02] MEDS: DIAZEPAM 10 MG TABLET PO SCH ×2 (10:00→12:07)
[2018-04-02] MEDS: THIAMINE HCL 100 MG TABLET PO SCH (10:00)
[2018-04-02] MEDS ORDERED: LIDOCAINE 5% PATCH TD PRN ×2 (11:30→11:45)
[2018-04-02] MEDS: LEVETIRACETAM 500 MG TABLET PO SCH ×2 (12:07→17:13)
[2018-04-02 12:15] VITALS: BP 100/56
--- NOTE | 2018-04-02 12:15 | NUR ---
CIWA 11 Pt complains of some nausea and headache. Pt is tremulous, diaphoretic and anxious and restless. Will continue to monitor, support and encourage according to plan of care.
[2018-04-02] MEDS ORDERED: 3 DAY TAPER OF VALIUM-SERENITY PROTOCOL PO PRN (15:30)
[2018-04-02 16:30] VITALS: BP 100/61
--- NOTE | 2018-04-02 17:24 | NUR ---
CIWA 6 Pt is anxious and tremulous with complaints of chills. Pt has moist skin. Will continue to monitor, support and encourage according to plan of care.
--- NOTE | 2018-04-02 18:39 | NUR ---
End of Shift Clinical Data Coordinator provided report on 48 year old male admitted to [facility] on 04/01/18 for medical management of ETOH withdrawals. Pt endorses allergies to PCN, Benztropine, and Haldol. Pt with a PMH of Epilepsy, last seizure 03/31/18, and asthma. Endorses a PPH of anxiety and depression and Schizoaffective DO. Pt currently on a modified 3 day Valium taper. Last CIWA 6, recorded at 1630. Pt not administered any PRN medications this shift. Pt is A/O x4 and able to make needs known. Flat affect and depressed mood. Pt with a linear thought and clear speech process. Pt is anxious and restless at times. Pt has remained isolative and withdrawn to room. Pt is guarded with typewriter ribbon winder. Pts taper was modified to a 3 day taper in order to get pt discharged on Thursday. Denies HI/SI or A/VH. Bed in low position with wheels locked and side rails upx2.
--- NOTE | 2018-04-02 18:51 | NUR ---
START OF SHIFT NOTE The patient is a 48 year old male, admitted for Alcohol withdrawal continues ordered modified 3 day Ativan Taper, and today is first day. Patient tolerated well. The patient is alert and oriented x4: Person, Place, Situation, and Time, presented with depressed mood and flat affect. Last CIWA=6 at 1630. Throughout the day shift patient noted anxious, agitated irritable with nervousness, sweating, tremors, restlessness, and fatigue, per day shift nurse report. No PRN medications administrated during day shift. Encouraged to fluids intake as tolerated. Encouraged to attend group activities. All needs met. Safety measures in place: Sheldon light within reach, bed is locked in lowest position, padded rails up x2. Patient endorsed by day shift nurse. Will continue to monitor closely.
--- NOTE | 2018-04-02 20:00 | NUR ---
CIWA ASSESSMENT CIWA=11. The patient appears anxious, agitated, noted with tremors, barely sweating, c/o severe body pain, restlessness, and fatigue. Scheduled and PRN Medications will be administrated, as ordered. Encouraged to fluids intake as tolerated. Encouraged to attend group activities. All needs met. Safety measures in place: Sheldon light within reach, bed is locked in lowest position, padded rails up x2. Will continue to monitor closely.
[2018-04-02] MEDS: ARIPIPRAZOLE 5 MG TABLET PO SCH (20:42)
[2018-04-02] MEDS: diphenhydrAMINE 50 MG CAPSULE PO PRN (20:43)
--- NOTE | 2018-04-02 20:43 | NUR ---
PRN BENADRYL PO ADMINISTRATION PRN Benadryl 50 mg PO for insomnia administrated at 2042, as ordered. Patient tolerated well. Will reassess in one hour. Safe and calm environment provided. All needs met. Safety measures in place: Sheldon light within reach, bed is locked in lowest position, padded rails up x2. Will continue to monitor closely.
--- NOTE | 2018-04-02 20:53 | NUR ---
PRN TYLENOL PO ADMINISTRATION PRN Tylenol 650 mg PO administrated for low back pain "01/29" at 2052, as ordered. Patient tolerated well. Will reassess in one hour. Safe and calm environment provided. All needs met. Safety measures in place: Sheldon light within reach, bed is locked in lowest position, padded rails up x2. Will continue to monitor closely.
[2018-04-02] MEDS ORDERED: DIAZEPAM 10 MG TABLET PO SCH (21:00)
[2018-04-02 21:23] VITALS: BP 124/81
--- NOTE | 2018-04-02 21:43 | NUR ---
RE-ASSESSMENT Patient is sleeping on his side. Respirations are unlabored and even. RR:14. PRN Benadryl 50 mg PO for insomnia administrated as ordered at 2042 was effective. Safe and calm environment provided. All needs met. Safety measures in place: Sheldon light within reach, bed is locked in lowest position, padded rails up x2. Will continue to monitor closely.
--- NOTE | 2018-04-02 21:53 | NUR ---
RE-ASSESSMENT Patient is sleeping on his side. Respirations are unlabored and even. RR:14. PRN Tylenol 650 mg PO administrated for low back pain "01/29" at 2052 was effective. Safe and calm environment provided. All needs met. Safety measures in place: Sheldon light within reach, bed is locked in lowest position, padded rails up x2. Will continue to monitor closely.
--- NOTE | 2018-04-03 | NUR ---
VS REFUSED, CIWA DEFERRED. VS refused, CIWA deferred due to patient sleeping. Respirations are unlabored and even. RR:14. Will be assessed when patient awakens. All needs met. Safety measures in place: Sheldon light within reach, bed is locked in lowest position, padded rails up x2. Will continue to monitor closely.
--- NOTE | 2018-04-03 04:00 | NUR ---
VS REFUSED, CIWA DEFERRED. VS refused, CIWA deferred due to patient sleeping. Will be assessed when patient awakens. All needs met. Safety measures in place: Sheldon light within reach, bed is locked in lowest position, padded rails up x2. Will continue to monitor closely.
--- NOTE | 2018-04-03 07:16 | NUR ---
END OF SHIFT NOTE The patient is a 48 year old male, admitted for Alcohol withdrawal on 04/01/2018 at 1949, placed on PRN medications. The patient is alert and oriented x4: Place, time, person, and situation, anxious mood and flat affect. The patient allergic to Penicillin, Benztropine, and Haloperidol. The latest CIWA=11 at 1999. Patient presenting with following withdrawal symptoms such as anxiety, agitation, difficulty concentrating, nervousness, diaphoresis, tremors, low back pain, restlessness, fatigue, and yawning. PRN Benadryl 50 mg PO for insomnia administrated as ordered at 2033, PRN Tylenol 650 mg PO administrated for low back pain "01/29" at 2052, and were effective. Education provided for nonpharmacological method that can be used to help control pain. Patient remains compliant with medications. Encouraged to fluids intake as tolerated. Encouraged to attend group activities. Patient slept for 8 hours, intake 710 ml, output: voided x2. All needs met. Safety measures in place: Sheldon light within reach, bed is locked in lowest position, padded rails up x2. Patient endorsed to day shift nurse.
--- NOTE | 2018-04-03 07:42 | NUR ---
Start of shift Pt admitted for medically supervised withdrawal of ETOH. Last CIWA was 11 at 1999. He slept 8 hours last night. Pt awake in bed watching TV. Pt cooperative and presents with flat affect and depressed mood. Withdrawal symptoms include anxiety, difficulty concentrating, diaphoresis, fine bilateral hand tremors and fatigue. Encouraged Pt to attend group therapy sessions to identify positive coping skills to maintain sobriety. Fall and Seizure Precautions. Bed in lowest position. Side rails up x2. Call light functioning and within reach. All needs attended and met. Will continue to monitor for withdrawal symptoms.
[2018-04-03 08:02] VITALS: BP 122/78
--- NOTE | 2018-04-03 08:04 | NUR ---
WA 11- Withdrawal symptoms include anxiety, fidgety, difficulty concentrating, diaphoresis, restless legs, fine bilateral hand tremors and fatigue.
[2018-04-03] MEDS: THIAMINE HCL 100 MG TABLET PO SCH (08:25)
[2018-04-03] MEDS: MULTIVITAMINS,THERAPEUTIC TABLET PO SCH (08:25)
[2018-04-03] MEDS: IBUPROFEN 600 MG TABLET PO PRN ×2 (08:25→20:52)
[2018-04-03] MEDS: FOLIC ACID 1 MG TABLET PO SCH (08:26)
[2018-04-03] MEDS: DIAZEPAM 5 MG TABLET PO SCH ×3 (08:26→20:52)
[2018-04-03] MEDS: FLUOXETINE HCL 20 MG CAPSULE PO SCH (08:26)
[2018-04-03] MEDS: LEVETIRACETAM 500 MG TABLET PO SCH ×2 (08:26→16:39)
--- NOTE | 2018-04-03 08:29 | NUR ---
PRN- Ibuprofen 600 mg po for back pain #12/29
[2018-04-03] MEDS ORDERED: DIAZEPAM 10 MG TABLET PO SCH (09:00)
--- NOTE | 2018-04-03 09:30 | NUR ---
Reassess Ibuprofen- Pt reports back pain now #4/10, improved.
--- NOTE | 2018-04-03 09:44 | NUR ---
Therapist prompted client to attend group therapy.
[2018-04-03 12:00] VITALS: BP 91/51
[2018-04-03 12:06] LABS: HEPATITIS B SURFACE AG Negative (Negative)
--- NOTE | 2018-04-03 12:21 | NUR ---
CIWA 10- Withdrawal symptoms include anxiety, difficulty concentrating, restless legs, fine tremors and fatigue.
[2018-04-03] MEDS ORDERED: methylPREDNISolone 1 PACK TAB.DS.PK [4MG TAB] PO ONE (13:15)
[2018-04-03] MEDS ORDERED: methylPREDNISolone 4 MG TABLET (DAY#1) PO ONE (14:00)
[2018-04-03 16:00] VITALS: BP 144/86
--- NOTE | 2018-04-03 16:10 | NUR ---
CIWA 10- Pt presents with moderate anxiety, body aches, difficulty concentrating, restless legs, fine tremors and fatigue.
[2018-04-03] MEDS ORDERED: methylPREDNISolone 4 MG TABLET (DAY#1, BEFORE DINNER) PO ONE (17:30)
--- NOTE | 2018-04-03 18:35 | NUR ---
End of shift Pt admitted for medically supervised withdrawal of ETOH. Last CIWA was 10 at 1600. Pt remains isolative and cooperative, he presents with flat affect, anhedonia, dysphoria, and depressed mood. Withdrawal symptoms include anxiety, difficulty concentrating, diaphoresis, fine bilateral hand tremors and fatigue. PRN given today Ibuprofen. Encouraged Pt to attend group therapy sessions to identify positive coping skills to maintain sobriety. PO fluids 2000 ml, voids x 2, BMx1. Fall and Seizure Precautions. Bed in lowest position. Side rails up x2. Call light functioning and within reach. All needs attended and met. Will continue to monitor for withdrawal symptoms.
--- NOTE | 2018-04-03 19:30 | NUR ---
Start of shift note Received report from day shift nurse. Patient is 48 year old male admitted for ETOH withdrawal. Patient is on 2nd day of his 3 day Valium taper. Patient is on Prednisone for Sarcoidosis. Patient is isolative. Patient was given PRN Motrin. Last CIWA 10. Patient in the room resting. Upon assessment, patient presents with flat affect, poor eye contact, suspicious and guarded. Safety measures in place. Call light within reach. Will continue to monitor
[2018-04-03 20:00] VITALS: BP 116/71
--- NOTE | 2018-04-03 20:00 | NUR ---
CIWA assessment Patient is anxious, restless, irritable, agitated, sweating, restless legs, sensitive to light and generalized body aches. CIWA 11.
[2018-04-03] MEDS: ARIPIPRAZOLE 5 MG TABLET PO SCH (20:51)
--- NOTE | 2018-04-03 20:52 | NUR ---
PRN Motrin administration Patient c/o generalized body aches. Will monitor for effectiveness
[2018-04-03] MEDS ORDERED: methylPREDNISolone 4 MG TABLET (DAY#1, HS) PO ONE (21:00)
--- NOTE | 2018-04-03 21:34 | NUR ---
PRN Maalox administration Patient is c/o heartburn . Will monitor for effectiveness
--- NOTE | 2018-04-03 21:52 | NUR ---
PRN Motrin re-assessment Patient states Motrin helpful and effective. Pain lessened.
--- NOTE | 2018-04-03 22:52 | NUR ---
PRN Maalox re-assessment Patient states Maalox effective. Heartburn ceased. Will continue to monitor.
[2018-04-04] VITALS: BP 110/64
--- NOTE | 2018-04-04 | NUR ---
CIWA assessment Patient lying in bed with eyes closed. Respiratione even and unlabored. Will continue to monitor.
[2018-04-04 04:00] VITALS: BP 112/70
--- NOTE | 2018-04-04 04:00 | NUR ---
CIWA assessment Patient lying in bed with eyes closed. Respiratione even and unlabored. Will continue to monitor.
--- NOTE | 2018-04-04 07:09 | NUR ---
End of shift note Patient slept 9 hours. Fluid intake 1,000 ml. Voided x 2 . NO BM. Patient presented with flat affect, poor eye contact, suspicious and guarded, anxious, restless, irritable, agitated, sweating, restless legs, sensitive to light and generalized body aches. Scheduled medication and taper given as ordered. PRN Motrin and Maalox given, helpful and effective. Patient isolative and withdrawn. Last CIWA 11. Safety measures in place. Call light within reach. Will continue to monitor
--- NOTE | 2018-04-04 07:12 | NUR ---
CIWA assessment Patient lying in bed with eyes closed. Respiratione even and unlabored. Will continue to monitor. Addendum: 04/04/18 at 0713 by KRISTINE VELAZCO LVN Error
--- NOTE | 2018-04-04 07:29 | NUR ---
Start of shift Pt admitted for medically supervised withdrawal of ETOH. Last CIWA was 11 at 2100. Pt slept 9 hours last night. Pt in bed asleep, arousable to voice and light touch. Resp even and unlabored. Room cluttered with food wrappers and empty drink bottles. Clothes strewn around room. Encouraged Pt to attend group therapy sessions to identify positive coping skills to maintain sobriety. Fall and Seizure Precautions. Bed in lowest position. Side rails up x2. Call light functioning and within reach. All needs attended and met. Will continue to monitor for withdrawal symptoms.
[2018-04-04] MEDS ORDERED: methylPREDNISolone 4 MG TABLET (DAY#2, ACB) PO ONE (07:30)
[2018-04-04 08:00] VITALS: BP 107/63
[2018-04-04] MEDS: LEVETIRACETAM 500 MG TABLET PO SCH ×2 (08:04→17:04)
[2018-04-04] MEDS: THIAMINE HCL 100 MG TABLET PO SCH (08:04)
[2018-04-04] MEDS: DIAZEPAM 5 MG TABLET PO SCH ×2 (08:04→20:19)
[2018-04-04] MEDS: FLUOXETINE HCL 20 MG CAPSULE PO SCH (08:04)
[2018-04-04] MEDS: MULTIVITAMINS,THERAPEUTIC TABLET PO SCH (08:04)
[2018-04-04] MEDS: FOLIC ACID 1 MG TABLET PO SCH (08:04)
[2018-04-04 08:07] LABS: BASOPHILS % (AUTO) 0.3 % (0.0-2.0); EOSINOPHILS % (AUTO) 0.3 % (0.0-7.0); HEMATOCRIT 46.2 % (36.7-47.1); HEMOGLOBIN 15.9 g/dL (12.5-16.3); LYMPHOCYTES % (AUTO) 10.9 % (20.5-51.5); MEAN CORPUSCULAR HEMOGLOBIN 34.2 uug (23.8-33.4); MEAN CORPUSCULAR HGB CONC 35 g/dL (32.5-36.3); MEAN CORPUSCULAR VOLUME 99.3 fL (73.0-96.2); MONOCYTES # (AUTO) 0.3 K/uL (2.0-10.0); MONOCYTES % (AUTO) 3.1 % (0.0-11.0); NEUTROPHILS # (AUTO) 7.8 K/uL (1.8-8.9); NEUTROPHILS % (AUTO) 85.4 % (38.5-71.5); PLATELET COUNT (AUTO) 132 K/uL (152-348); RED BLOOD CELL COUNT(AUTO) 4.65 MIL/uL (4.06-5.63); WHITE BLOOD COUNT (AUTO) 9.1 K/uL (3.6-10.2)
[2018-04-04 08:09] LABS: CREATININE 1.1 mg/dL (0.6-1.3); POTASSIUM 4.1 mmol/L (3.5-5.1)
--- NOTE | 2018-04-04 08:09 | NUR ---
CIWA 11- Patient is anxious, restless legs, irritable, sensitive to light and generalized body aches. Affect flat and depresses mood.
[2018-04-04] MEDS ORDERED: DIAZEPAM 5 MG TABLET PO SCH (09:00)
[2018-04-04] MEDS ORDERED: LIDOCAINE 5% PATCH TD PRN (11:45)
[2018-04-04 12:02] VITALS: BP 133/90
--- NOTE | 2018-04-04 12:03 | NUR ---
CIWA 10- Patient c/o anxiety, body aches, back pain #7/10, irritable, sensitive to light
[2018-04-04] MEDS: IBUPROFEN 600 MG TABLET PO PRN (12:22)
--- NOTE | 2018-04-04 12:24 | NUR ---
PRN Ibuprofen 600 mg po for back pain #7/10 PRN Lidocaine patch 5% applied to low back for back pain #710
[2018-04-04] MEDS ORDERED: methylPREDNISolone 4 MG TABLET (DAY#2, PC LUNCH) PO ONE (12:30)
--- NOTE | 2018-04-04 16:26 | NUR ---
CIWA 9- Patient c/o moderate anxiety, sensitivity to light, body aches, and agitation
[2018-04-04 16:42] VITALS: BP 127/89
[2018-04-04] MEDS ORDERED: methylPREDNISolone 4 MG TABLET (DAY#2, PC DINNER) PO ONE (17:30)
--- NOTE | 2018-04-04 18:43 | NUR ---
End of shift Pt admitted for medically supervised withdrawal of ETOH. Last CIWA was 9 at 1600. Pt remains isolative and cooperative, he presents with flat affect, anhedonia, dysphoria, and depressed mood. Withdrawal symptoms include anxiety, difficulty concentrating, fine tremors and fatigue. PRN given today; Lidocaine patch and Ibuprofen. PO fluids 2500 ml, voids x 4, BMx1. Encouraged Pt to attend group therapy sessions to identify positive coping skills to maintain sobriety. Fall and Seizure Precautions. Bed in lowest position. Side rails up x2. Call light functioning and within reach. All needs attended and met. Will continue to monitor for withdrawal symptoms.
--- NOTE | 2018-04-04 19:30 | NUR ---
START OF SHIFT Received 48 year old male patient admitted on 04/01/18 for ETOH withdrawal. Pt is alert and oriented x4. Pt noted with anxiety, restlessness, irritability, fatigue and 7/10 lower back ache. He is receiving a 3 day Valium taper and tolerating well. Per endorsement, pt received PRN Ibuprofen and lidocaine patch. Last CIWA:9 at 1600. Breathing is even and unlabored, safety measures in place. Will continue to monitor.
--- NOTE | 2018-04-04 20:00 | NUR ---
CIWA Pt complains of anxiety, restlessness, irritability, fatigue and 7/10 lower back ache. He is noted with flat affect and withdrawn behavior. CIWA: 8. Will continue to monitor.
[2018-04-04 20:15] VITALS: BP 104/56
[2018-04-04] MEDS: ARIPIPRAZOLE 5 MG TABLET PO SCH (20:19)
--- NOTE | 2018-04-04 20:35 | NUR ---
PRN CLONIDINE, SEROQUEL Pt complains increased anxiety, agitation, and difficulty falling asleep. PRN Clonidine and Seroquel administered as ordered. Safety measures in place. Will monitor effectiveness. Addendum: 04/04/18 at 2220 by SCOTT DUNHAM RN ERROR Charting on wrong patient.
[2018-04-04] MEDS ORDERED: methylPREDNISolone 4 MG TABLET (DAY#2, HS) PO ONE (21:00)
--- NOTE | 2018-04-04 21:35 | NUR ---
PRN SEROQUEL, CLONIDINE REASSESSMENT PRN Clonidine effective. Pt reports decrease in anxiety. PRN Seroquel ineffective. Pt still awake, reports he feels drowsy and will sleep soon. Breathing is even and unlabored, safety measures in place. Will monitor. Addendum: 04/05/18 at 0017 by SCOTT DUNHAM RN ERROR. CHARTING ON WRONG PATIENT
--- NOTE | 2018-04-05 00:13 | NUR ---
VITALS REFUSED, CIWA DEFERRED Pt refused 0000 vitals. CIWA deferred d/t pt lying in bed with eyes closed and is noted to be asleep. Breathing is even and unlabored, safety measures in place. Will monitor.
--- NOTE | 2018-04-05 04:00 | NUR ---
VITALS REFUSED, CIWA DEFERRED 0400 vitals refused. CIWA deferred d/t pt lying in bed with eyes closed noted to be asleep. Breathing is even and unlabored, safety measures in place. Will continue to monitor.
--- NOTE | 2018-04-05 06:59 | NUR ---
END OF SHIFT Pt is a 48 year old male patient admitted on 04/01/18 for ETOH withdrawal. He remains alert and oriented x4. He was noted with anxiety, restlessness, irritability, fatigue and 7/10 lower back ache during the shift. He is receiving a 3 day Valium taper , last night was his last dose of the taper. Pt tolerated well. He slept a total of 9 hrs, Intake: 500mL, Void: x1, BM:0, Last CIWA:8 at 2000. Breathing is even and unlabored, safety measures in place. Endorsed to AM shift.
--- NOTE | 2018-04-05 07:23 | NUR ---
START OF SHIFT Received 48 year old male patient admitted on 04/01/18 for ETOH withdrawal. He has completed a 3 day Valium taper.No PRN medications were given on PM shift. Last CIWA 8. He slept for 9 hours. Patient is asleep in bed at this time, Breathing is even and unlabored, safety measures in place. Will continue to monitor and offer support and encouragement as needed
[2018-04-05] MEDS ORDERED: methylPREDNISolone 4 MG TABLET (DAY#3, ACB) PO ONE (07:30)
[2018-04-05] MEDS: LEVETIRACETAM 500 MG TABLET PO SCH ×2 (07:49→17:01)
[2018-04-05] MEDS: FLUOXETINE HCL 20 MG CAPSULE PO SCH (07:49)
[2018-04-05] MEDS: FOLIC ACID 1 MG TABLET PO SCH (07:49)
[2018-04-05] MEDS: THIAMINE HCL 100 MG TABLET PO SCH (07:49)
[2018-04-05] MEDS: MULTIVITAMINS,THERAPEUTIC TABLET PO SCH (07:50)
[2018-04-05 07:55] LABS: BASOPHILS # (AUTO) 0.1 K/uL (0.0-8.0); BASOPHILS % (AUTO) 0.7 % (0.0-2.0); EOSINOPHILS # (AUTO) 0.1 K/uL (0.0-0.7); EOSINOPHILS % (AUTO) 0.6 % (0.0-7.0); HEMATOCRIT 47.5 % (36.7-47.1); HEMOGLOBIN 16.3 g/dL (12.5-16.3); LYMPHOCYTES # (AUTO) 1.7 K/uL (20.0-40.0); LYMPHOCYTES % (AUTO) 19.6 % (20.5-51.5); MEAN CORPUSCULAR HEMOGLOBIN 34.2 uug (23.8-33.4); MEAN CORPUSCULAR HGB CONC 34 g/dL (32.5-36.3); MEAN CORPUSCULAR VOLUME 99.4 fL (73.0-96.2); MONOCYTES # (AUTO) 0.4 K/uL (2.0-10.0); MONOCYTES % (AUTO) 4.8 % (0.0-11.0); NEUTROPHILS # (AUTO) 6.6 K/uL (1.8-8.9); NEUTROPHILS % (AUTO) 74.3 % (38.5-71.5); PLATELET COUNT (AUTO) 137 K/uL (152-348); RED BLOOD CELL COUNT(AUTO) 4.77 MIL/uL (4.06-5.63); WHITE BLOOD COUNT (AUTO) 8.9 K/uL (3.6-10.2)
[2018-04-05 08:00] VITALS: BP 113/61
--- NOTE | 2018-04-05 08:00 | NUR ---
CIWA 9 Patient presents with restlessness, irritability, fine hand tremors and increased anxiety
[2018-04-05] MEDS ORDERED: DIAZEPAM 5 MG TABLET PO SCH (09:00)
--- NOTE | 2018-04-05 11:06 | NUR ---
Endorsement Endorsed care to Sherri MANTILLA, all pertinent information relayed
--- NOTE | 2018-04-05 11:10 | NUR ---
Assumed care of Pt. He is A/O X 4. Will provide safe and supportive environment and monitor and manage s/s of w/d.
[2018-04-05 12:00] VITALS: BP 118/75
--- NOTE | 2018-04-05 12:10 | NUR ---
CIWA 10 He reports restlessness,irritability,anxiety and intermittent sweats.
[2018-04-05] MEDS ORDERED: methylPREDNISolone 4 MG TABLET (DAY#3, PC LUNCH) PO ONE (12:30)
[2018-04-05] MEDS ORDERED: ALBU8HFA4 IH (13:36)
[2018-04-05] MEDS ORDERED: LEVE750T54 PO (13:41)
[2018-04-05] MEDS ORDERED: LIDO30AD10 TD (13:41)
--- NOTE | 2018-04-05 14:30 | NUR ---
Therapist prompted client to attend all group therapy sessions.
[2018-04-05 16:00] VITALS: BP 121/81
[2018-04-05] MEDS ORDERED: methylPREDNISolone 4 MG TABLET (DAY#3, PC DINNER) PO ONE (17:30)
--- NOTE | 2018-04-05 18:50 | NUR ---
END OF SHIFT: Pt continues on a 3 day Valium taper to manage s/s of w/d which include anxiety and restlessness.Last CIWA 7. He attended groups and was compliant with medications. He was observed interacting with peers. Will pass shift report to oncoming night nurse.
--- NOTE | 2018-04-05 19:46 | NUR ---
START OF SHIFT NOTE Rcvd report from outgoing nurse. Pt is a 48 y/o male A/O to person, place, time, and purpose. Pt was admitted for medically supervised withdrawal from ETOH. Pt completed a 3 day Valium taper. Pt is being discharged 04/06. Pt has been presenting w/ anxiety, depressed mood, flat affect, irritability, body aches, and restlessness. Pt rcvd no PRN medications during previous shift. Last CIWA 7 @ 1600. Call light is within reach. Pt will continue to be monitored and needs met.
--- NOTE | 2018-04-05 20:10 | NUR ---
CIWA ASSESSMENT CIWA 7. Pt has been presenting w/ anxiety, depressed mood, flat affect, irritability, body aches, and restlessness. V/S:T:98.6, P:82, RR:16, SPO2:97, BP:138/100.
[2018-04-05 20:11] VITALS: BP 138/100
[2018-04-05] MEDS ORDERED: methylPREDNISolone 4 MG TABLET (DAY#3, HS) PO ONE (21:00)
[2018-04-05] MEDS: ARIPIPRAZOLE 5 MG TABLET PO SCH (21:31)
--- NOTE | 2018-04-05 21:31 | NUR ---
PRN CLONIDINE ADMINISTRATION Clonidine 0.1mg given for elevated BP of 138/100. Pt denies any other s/s of HTN. Will reassess pt in 1hr.
--- NOTE | 2018-04-05 22:31 | NUR ---
PRN CLONIDINE REASSESSMENT Pt is in bed w/ his eyes closed. Pt's respirations are unlabored and even. Will continue to monitor pt.
--- NOTE | 2018-04-06 00:02 | NUR ---
CIWA DEFERRED. V/S REFUSED Pt is in bed w/ his eyes closed. Pt's respirations are unlabored and even.
--- NOTE | 2018-04-06 04:02 | NUR ---
CIWA DEFERRED. V/S REFUSED Pt is i bed w/ his eyes closed. Pt's respirations are unlabored and even.
--- NOTE | 2018-04-06 07:06 | NUR ---
END OF SHIFT NOTE Endorsed pt to oncoming nurse. Pt is a 48 y/o male A/O to person, place, time, and purpose. Pt was admitted for medically supervised withdrawal from ETOH. Pt completed a 3 day Valium taper. Pt is being discharged 04/06. Pt continues presenting w/ anxiety, depressed mood, flat affect, irritability, body aches, and restlessness. Pt denies any S/I or H/I. PRN Clonidine 0.1mg for elevated BP was given and noted effective. Pts fluid intake was 2500ml and he slept for 9hrs. Last CIWA 7 @ 1999. Call light is within reach.
[2018-04-06] MEDS ORDERED: methylPREDNISolone 4 MG TABLET (DAY#4, ACB) PO ONE (07:30)
--- NOTE | 2018-04-06 07:30 | NUR ---
Start of Shift Technical Report Writer received report on 48 year old male admitted to [facility] on 04/01/18 for medical management of ETOH withdrawals. Pt endorses allergies to PCN, Benztropine, and Haldol. Pt with a PMH of Epilepsy, last seizure 03/31/18, and asthma. Endorses a PPH of anxiety, depression and Schizoaffective DO. Pt has completed a # day Valium taper in preparation of todays discharge. Last CIWA 7, per report. Pt was administered Clonidine(HTN) as PRN medications on NOC, per report. Technical Report Writer encounters pt in pts room, pt is A/O x4 and able to make needs known. Pt with a flat affect and depressed mood. Pt with a linear thought and clear speech process. Denies HI/SI or A/VH. Bed in low position with wheels locked and side rails upx2. Will continue to monitor, support and encourage according to plan of care.
--- NOTE | 2018-04-06 08:00 | NUR ---
CIWA 5 Pt is anxious and restless with moist skin and fine tremors. Will continue to monitor, support and encourage according to plan of care.
[2018-04-06] MEDS: FOLIC ACID 1 MG TABLET PO SCH (08:24)
[2018-04-06] MEDS: THIAMINE HCL 100 MG TABLET PO SCH (08:24)
[2018-04-06] MEDS: MULTIVITAMINS,THERAPEUTIC TABLET PO SCH (08:24)
[2018-04-06] MEDS: FLUOXETINE HCL 20 MG CAPSULE PO SCH (08:24)
[2018-04-06] MEDS: LEVETIRACETAM 500 MG TABLET PO SCH (08:25)
[2018-04-06 08:46] VITALS: BP 122/72
[2018-04-06] MEDS ORDERED: DIAZEPAM 5 MG TABLET PO SCH (09:00)
--- NOTE | 2018-04-06 09:54 | NUR ---
Discharge Assessment Pt is A/O x4 and able to make needs known. Pt with a linear thought process and clear speech pattern. Pt with a flat affect and depressed mood. Pt is anxious, restless and with moist skin. Pt's discharge CIWA is 5, VS stable. Pt endorses wanting to get home and get started on his life. Pt is cooperative and polite with singer songwriter. Pt denies SI/HI or A/VH, or any other associated psychiatric symptoms. Pt educated on all discharge educational material, discharge material and discharge medications. Pt was educated on name, time, route, dose and indication of all prescribed medications. Prescriptions provided and given to pt, in provided bag from [facility]. Pt was educated on lab results, test results and all MD communications. Pt denies any further comments, questions or concerns. Pt was escorted via ambulation to the main lobby where pt arranged transportation for self to pt's residence in [place].
[2018-04-06] MEDS ORDERED: methylPREDNISolone 4 MG TABLET (DAY#4, PC LUNCH) PO ONE (12:30)
[2018-04-06] MEDS ORDERED: methylPREDNISolone 4 MG TABLET (DAY#4, HS) PO ONE (21:00)
[2018-04-07] MEDS ORDERED: methylPREDNISolone 4 MG TABLET (DAY#5, ACB) PO ONE (07:30)
[2018-04-07] MEDS ORDERED: methylPREDNISolone 4 MG TABLET (DAY#5, HS) PO ONE (21:00)
[2018-04-08] MEDS ORDERED: methylPREDNISolone 4 MG TABLET (DAY#6, ACB) PO ONE (07:30)
== END 2018-04-06 09:54 | disposition home or self-care (01) | DRG 772 ==
LOC: SRC 18:59
PROVIDERS: ADMIT Family Medicine Addiction Medicine; ATTEND Family Medicine Addiction Medicine
PROC: HZ2ZZZZ Detoxification Services for Substance Abuse Treatment (ICD-10-PCS; principal; 2018-04-01)
PROC: HZ31ZZZ Individual Counseling for Substance Abuse Treatment, Behavioral (ICD-10-PCS; 2018-04-03)
PROC: HZ41ZZZ Group Counseling for Substance Abuse Treatment, Behavioral (ICD-10-PCS; 2018-04-03)
DX: F10.230 Alcohol dependence with withdrawal, uncomplicated (principal); D69.6 Thrombocytopenia, unspecified; F25.0 Schizoaffective disorder, bipolar type; E86.0 Dehydration; F17.210 Nicotine dependence, cigarettes, uncomplicated; F41.1 Generalized anxiety disorder; Y90.0 Blood alcohol level of less than 20 mg/100 ml; Z88.0 Allergy status to penicillin; Z88.8 Allergy status to other drugs, medicaments and biological substances; G40.909 Epilepsy, unspecified, not intractable, without status epilepticus; J45.909 Unspecified asthma, uncomplicated; D86.1 Sarcoidosis of lymph nodes
CPT/HCPCS: 36415; 70030-TC; 80307; 83690; 83735; 84443; 85025; 85651; 86592; 86705; 86803; 87340; 87806; G0480; J3411; J7509; Q0163